=== PATIENT | female | born 1985 | race Caucasian/White ===

== ENCOUNTER 2020-01-06 14:51 | Emergency (ER) | payer BC, OTHER ==
--- NOTE | 2020-01-06 14:57 | EDM.PDOC ---
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 She struck her gravid abdomen as well. She denies any cramping or abdominal pelvic discomfort. Has no active bleeding to the abrasions. Onset: Today, Sudden Onset Date: 01/06/20 Duration: Minutes: Location: Reports: Head, Abdomen, Lower Extremity, Left Quality: Reports: Ache, Burning Severity: Moderate Improves with: Reports: None Worsens with: Reports: Movement Context: Reports: Trauma Associated Symptoms: Reports: No Other Symptoms - Related Data Home Meds: Home Meds Pnv No.103/Folic/Om3s/Fish Oil [ Gummies] 1 each PO DAILY 01/06/20 [History] Past Medical History : 3 Para: 0 LMP (Approximate): - Past Surgical History Other Surgical History Comment: Surgical procedure to the neck Social & Family History - Family History Family Medical History: Noncontributory ED ROS GENERAL - Review of Systems Review Of Systems: Comprehensive ROS is negative, except as noted in HPI. ED EXAM, GENERAL - Physical Exam Exam: See Below Free Text/Narrative:: Alert oriented in no acute distress. HEENT shows an abrasion to the right forehead with no active bleeding. PERRLA no icterus no injection. Neck is soft and supple with no rigidity nor tenderness. Thorax is clear, cardiac is regular. Abdomen is gravid heart tones are heard at 154 in the right lower quadrant roughly the 8 o'clock position midway to the umbilicus. Abrasion to the left lower extremity knee and leg with no active bleeding. There is no other injury nor discomfort noted to the extremities as she was unable to get her hands out to catch herself secondary of what she was carrying with her. Upper extremities shoulder and chest are benign. Reassured with heart tones in the normal range with no cramping and or discomfort very low likelihood of injury. We will obtain urinalysis to rule out any urine/renal involvement secondary of the fall. Course - Vital Signs Last Recorded V/S: Last Vital Signs Temp 37.3 C 01/06/20 14:52 Pulse 106 H 01/06/20 14:52 Resp 20 01/06/20 14:52 BP 144/80 H 01/06/20 14:52 Pulse Ox 100 01/06/20 14:52 - Orders/Labs/Meds Labs: Laboratory Tests 01/06/20 Range/Units 15:26 Specimen Type Urincc Urine Color Yellow (YELLOW) Urine Appearance Clear (CLEAR) Urine pH 6.0 (5.0-9.0) Ur Specific [place] 1.025 (1.005-1.030) Urine Protein Negative (NEGATIVE) mg/dL Urine Glucose (UA) Negative (NEGATIVE) mg/dL Urine Ketones Negative (NEGATIVE) mg/dL Urine Occult Blood Negative (NEGATIVE) Urine Nitrite Negative (NEGATIVE) Urine Bilirubin Negative (NEGATIVE) Urine Urobilinogen 0.2 (0.2-1.0) E.U./dL Ur Leukocyte Esterase Negative (NEGATIVE) Departure - Departure Time of Disposition: 15:53 Disposition: Home, Self-Care 01 Clinical Impression: Abrasion of knee, left, , Encounter related to worker's compensation claim, Abrasion of forehead - Discharge Information *PRESCRIPTION DRUG MONITORING PROGRAM REVIEWED*: Not Applicable *COPY OF PRESCRIPTION DRUG MONITORING REPORT IN PATIENT DEREJE: Not Applicable Instructions: and Travel Referrals: PCP,Not In Area [Primary Care Provider] - Forms: ED Department Discharge Additional Instructions: You need to go rest tonight. Watch for evidence of infection to the areas of abrasion to your knee and forehead. If you are not returning to [facility], I would recommend staying at a facility location where OB services are available. This is more for your peace of mind as I do not find any concern for injury to the fetus at this time. You need to be rechecked if sudden aches or pains develop, specifically to the abdomen or pelvis outside of the normal realm of your . You need to be rechecked if you develop any discharge or bleeding. Follow-up with your CUSTOM DECORATING CONSULTANT as needed, contacting them about this incident for their awareness. Follow-up as needed if concerns develop, presenting to the nearest facility with services available. Sepsis Event Note (ED) - Focused Exam Vital Signs: Vital Signs Temp Pulse Resp BP Pulse Ox 01/06/20 14:52 37.3 C 106 H 20 144/80 H 100 - Problem List & Annotations (1) Abrasion of knee, left SNOMED Code(s): 67596444009526767 Code(s): S80.212A - ABRASION, LEFT KNEE, INITIAL ENCOUNTER Status: Acute Priority: High Current Visit: Yes Qualifiers: Encounter type: initial encounter Qualified Code(s): S80.212A - Abrasion, left knee, initial encounter (2) Abrasion of forehead SNOMED Code(s): 520549326 Code(s): S00.81XA - ABRASION OF OTHER PART OF HEAD, INITIAL ENCOUNTER Status: Acute Priority: High Current Visit: Yes Qualifiers: Encounter type: initial encounter Qualified Code(s): S00.81XA - Abrasion of other part of head, initial encounter (3) SNOMED Code(s): 69248093 Code(s): Z34.90 - ENCNTR FOR SUPRVSN OF NORMAL , UNSP, UNSP TRIMESTER Status: Chronic Priority: Medium Current Visit: Yes Qualifiers: Weeks of gestation: 29 weeks Qualified Code(s): Z3A.29 - 29 weeks gestation of (4) Encounter related to worker's compensation claim SNOMED Code(s): 789496310 Code(s): Z02.6 - ENCOUNTER FOR EXAMINATION FOR INSURANCE PURPOSES Status: Acute Current Visit: Yes - Problem List Review Problem List Initiated/Reviewed/Updated: Yes - Assessment/Plan Plan: You need to go [facility] tonight. Watch for evidence of infection to the areas of abrasion to your knee and forehead. If you are not returning to [facility], I would recommend staying at a facility location where OB services are available. This is more for your peace of mind as I do not find any concern for injury to the fetus at this time. You need to be rechecked if sudden aches or pains develop, specifically to the abdomen or pelvis outside of the normal realm of your . You need to be rechecked if you develop any discharge or bleeding. Follow-up with your CUSTOM DECORATING CONSULTANT as needed, contacting them about this incident for their awareness. Follow-up as needed if concerns develop, presenting to the nearest facility with services available.
== END 2020-01-06 16:05 | disposition home or self-care (01) ==
LOC: KA.ED 14:51
DX: O9A.213 Injury, poisoning and certain other consequences of external causes complicating pregnancy, third trimester (principal); S00.81XA Abrasion of other part of head, initial encounter; S80.212A Abrasion, left knee, initial encounter; W01.198A Fall on same level from slipping, tripping and stumbling with subsequent striking against other object, initial encounter
CPT/HCPCS: 81003; 99283